=== PATIENT | female | born 1985 | race Native Hawaiian/Other Pacific Islander ===

== ENCOUNTER → 2018-06-25 | Outpatient (CLI) | payer BC | LOC: RAD 11:22 | DX: M54.9 Dorsalgia, unspecified (principal) ==

== ENCOUNTER → 2018-06-29 | Outpatient (CLI) | payer BC | LOC: RAD 11:28 | DX: M54.5 Low back pain (principal); M54.2 Cervicalgia; R07.81 Pleurodynia ==